=== PATIENT | female | born 1950 | race Caucasian/White ===

== ENCOUNTER → 2017-07-25 | Outpatient (CLI) | payer OTHER ==
[~2017-07-25] MED LIST: ASPIRIN PO; GLUCOPHAGE XR500 MG PO; LOSARTAN-HCTZ1 EAC1 PO; PRILOSEC 20 MG20 MG PO; TOPROL XL50 MG PO; ZOCOR 20 MG TAB20 M1 PO
== END ==
LOC: M.RAD 09:22
DX: Z12.31 Encounter for screening mammogram for malignant neoplasm of breast (principal); M43.8X5 Other specified deforming dorsopathies, thoracolumbar region; M47.896 Other spondylosis, lumbar region

== ENCOUNTER → 2017-07-31 | Outpatient (CLI) | payer OTHER | LOC: M.MRI 10:42 | DX: M47.896 Other spondylosis, lumbar region (principal); M48.061 Spinal stenosis, lumbar region without neurogenic claudication; M54.6 Pain in thoracic spine; M79.605 Pain in left leg; M79.604 Pain in right leg ==